=== PATIENT | female | born 1955 | race Caucasian/White ===

== ENCOUNTER 2021-02-25 10:35 | Outpatient (CLI) | payer OTHER ==
--- NOTE | 2021-02-25 11:49 | XRAY Report ---
PROCEDURE: Hand 3 View RT x-ray INDICATIONS: Pain TECHNIQUE: 3 views of the hand(s) acquired. COMPARISON: None FINDINGS: Bones: No fractures or dislocations. No suspicious bony lesions. Mild degenerative space narrowing and marginal osteophytes involve the second distal interphalangeal joint Soft tissues: No suspicious soft tissue calcifications. IMPRESSION: No fracture or foreign body Mild osteoarthritis Reviewed by: Benjamin Olvera MD on 02/25/2021 10:48 AM [facility] Approved by: Benjamin Olvera MD on 02/25/2021 10:48 AM [facility] Station ID: [id number]
== END 2021-02-25 23:59 | disposition home or self-care (01) ==
LOC: DI.N 10:35
PROVIDERS: ATTEND Physician Assistant Medical
DX: M19.041 Primary osteoarthritis, right hand (principal)

== ENCOUNTER 2022-04-14 09:11 | Outpatient (CLI) | payer OTHER ==
--- NOTE | 2022-04-14 14:41 | XRAY Report ---
PROCEDURE: Knee 2 View RT INDICATIONS: KNEE PX TECHNIQUE: 2 views of the right knee(s) were acquired. COMPARISON: None. FINDINGS: Bones: No fractures or dislocations. No suspicious bony lesions. Medial compartmental joint space narrowing Soft tissues: No joint effusion. No suspicious soft tissue calcifications. IMPRESSION: Medial osteoarthritis Reviewed by: Benjamin Olvera MD on 04/14/2022 1:39 PM [place] Approved by: Benjamin Olvera MD on 04/14/2022 1:39 PM [place] Station ID: [id number]
== END 2022-04-14 09:12 | disposition home or self-care (01) ==
LOC: DI 09:11
PROVIDERS: ATTEND Family Medicine
DX: M17.11 Unilateral primary osteoarthritis, right knee (principal)

== ENCOUNTER 2022-06-04 13:39 | Outpatient (CLI) | payer OTHER ==
--- NOTE | 2022-06-04 13:19 | XRAY Report ---
PROCEDURE: Knee 4 View RT INDICATIONS: RIGHT KNEE PAIN TECHNIQUE: 4 views of the right knee(s) were acquired. Single frontal view of the left knee also ob tained. COMPARISON: Right knee radiographs 04/14/2022 FINDINGS: Bones: No acute fracture or dislocation identified. Moderate joint space narrowing of the medial and patellofemoral compartments. Moderate left knee medial compartment joint space narrowing also demons trated. Soft tissues: A joint effusion is present. No suspicious soft tissue calcifications. IMPRESSION: 1. Degenerative changes of the right knee. 2. Nonspecific right knee effusion. Reviewed by: Ramos Thakur MD on 06/04/2022 1:17 PM PST Approved by: Ramos Thakur MD on 06/04/2022 1:17 PM PST Station ID: [id number]
== END 2022-06-04 13:40 | disposition home or self-care (01) ==
LOC: DI.WOS 13:39
PROVIDERS: ATTEND Orthopaedic Surgery
DX: M17.11 Unilateral primary osteoarthritis, right knee (principal); M25.461 Effusion, right knee

== ENCOUNTER 2022-06-18 09:16 | Outpatient (CLI) | payer OTHER ==
--- NOTE | 2022-06-27 09:00 | Mammography Report ---
BILATERAL DIGITAL SCREENING MAMMOGRAM 3D/2D: 06/18/2022 CLINICAL: Routine screening. Comparison is made to exams dated: 06/23/2013 mammogram, 09/14/2019 mammogram, 06/14/2015 mammogram, and 07/01/2013 mammogram - [facility]. There are scattered areas of fibroglandular density in both breasts (category b / 25%-50% glandular t issue). No significant masses, calcifications, or other findings are seen in either breast. There has been no significant interval change. IMPRESSION: NEGATIVE There is no mammographic evidence of malignancy. A 1 year screening mammogram is recommended. Based on the Tyrer Cuzick model (a risk assessment model) the patients lifetime risk is 8.4% and her 10 year risk is 4.7%. According to the ACR, ACS, and NCCN guidelines, an annual breast MRI exam presley g with mammogram is recommended if the patients lifetime risk is 20% or greater. This exam was interpreted at Station ID: [id number]. NOTE: For mammograms, a report in lay terms will be sent to the patient. Approximately 15% of breast malignancies will not be visualized mammographically. In the management of a palpable breast mass, a negative mammogram must not discourage biopsy of a clinically suspicious lesion. Electronically Signed By: Samantha escalera/antoni:06/26/2022 16:55:40 letter sent: No_Letter ACR BI-RADS Category 1: Negative 3341F PARENCHYMAL PATTERN: (A) - The breast(s) demonstrate(s) scattered fibroglandular densities. BI-RADS CATEGORY: (1) - 1 Mammogram [id number] 1 year screening LATERALITY: (B)
== END 2022-06-18 09:17 | disposition home or self-care (01) ==
LOC: DI 09:16
PROVIDERS: ATTEND Internal Medicine
DX: Z12.31 Encounter for screening mammogram for malignant neoplasm of breast (principal)